=== PATIENT | female | born 1935 | race Caucasian/White ===

== ENCOUNTER → 2020-08-04 09:43 | Outpatient (BNVA) | payer MEDICARE, SELFPAY | PROVIDERS: PCP Internal Medicine; Visit Provider Internal Medicine | DX: I48.20 Chronic atrial fibrillation, unspecified (principal); Z51.81 Encounter for therapeutic drug level monitoring; Z79.01 Long term (current) use of anticoagulants | CPT/HCPCS: 85610; 99211 ==

== ENCOUNTER 2020-08-17 10:42 | Outpatient (REF) | payer MEDICARE, SELFPAY ==
[2020-08-17 13:57] LABS: Hematocrit 37.5 % (37-47); Hemoglobin 11.9 g/dl (12.0-16.0); Mean Corpuscular HGB Conc 31.7 g/dl (31.0-35.0); Mean Corpuscular Hemoglobin 30.1 pg (27.0-33.0); Mean Corpuscular Volume 94.7 fL (80-98); Mean Platelet Volume 12.4 fL (9.4-12.3); Platelet Count 177 X10*3/uL (160-400); Red Blood Count 3.96 X10*6/uL (4.20-5.50); Red Cell Distribution Width 13.9 % (11.0-16.0); White Blood Count 6.1 X10*3/uL (4.8-10.8)
[2020-08-17 14:24] LABS: Cholesterol 103 mg/dL; HDL Cholesterol 36 mg/dL; LDL Cholesterol Calculated 48 mg/dl; Triglycerides 98 mg/dL
[2020-08-17 14:29] LABS: Creatinine Urine 45.13 mg/dL; Microalbum/Creatinine Ratio Ur 39.8 ug/mg cr
[2020-08-17 14:43] LABS: Alanine Aminotransferase 85 U/L (0-31); Alkaline Phosphatase 64 U/L (39-117); Anion Gap 10 (12-20); Aspartate Amino Transferase 102 U/L (5-31); Bilirubin Total 0.2 mg/dL (0.0-1.0); Blood Urea Nitrogen 20 mg/dL (9-16); Calcium 9.2 mg/dL (8.4-10.2); Carbon Dioxide 27 mmol/L (22-29); Chloride 105 mmol/L (96-108); Estimated Glomerular Filt Rate 46; Glucose Random 81 mg/dL (60-115); Potassium 4.9 mmol/l (3.3-5.1); Sodium 137 mmol/L (135-145); Total Protein 8.3 g/dL (6.5-8.0)
[2020-08-17 14:49] LABS: Vitamin B12 529 pg/mL (200-900)
[2020-08-18 18:17] LABS: LDL Cholesterol Direct 50 mg/dL (<100)
== END 2020-08-17 10:43 | disposition home or self-care (01) ==
LOC: HO.LAB 10:42
PROVIDERS: PCP Internal Medicine; Referring Provider Internal Medicine; Visit Provider Internal Medicine Endocrinology, Diabetes & Metabolism
DX: E10.42 Type 1 diabetes mellitus with diabetic polyneuropathy (principal); E10.21 Type 1 diabetes mellitus with diabetic nephropathy; E78.5 Hyperlipidemia, unspecified; I10 Essential (primary) hypertension; Z68.27 Body mass index [BMI] 27.0-27.9, adult; Z79.4 Long term (current) use of insulin; Z71.3 Dietary counseling and surveillance
CPT/HCPCS: 36415; 80053; 80061; 82043; 82607; 82947; 83721; 85027; 99214

== ENCOUNTER 2020-08-26 09:17 | Outpatient (REF) | payer MEDICARE, SELFPAY ==
[2020-08-26 10:31] LABS: MANUAL DIFF FLAG NO
[2020-08-26 10:35] LABS: Basophils Percent Auto 0.8 % (0-2); Eosinophils Absolute Auto 0.1 X10*3/uL (0.0-0.4); Eosinophils Percent Auto 2.3 % (0-4); Hematocrit 36.2 % (37-47); Hemoglobin 11.5 g/dl (12.0-16.0); Imm Gran Abs Auto 0.01 X10*3/uL (0.00-0.03); Imm Gran Pct Auto 0.2 % (0.0-0.4); Lymphocytes Absolute Auto 1.9 X10*3/uL (1.2-4.9); Lymphocytes Percent Auto 37.4 % (20-40); Mean Corpuscular HGB Conc 31.8 g/dl (31.0-35.0); Mean Corpuscular Volume 94.5 fL (80-98); Monocytes Absolute Auto 0.5 X10*3/uL (0.1-1.2); Monocytes Percent Auto 9.5 % (2-11); Neutrophils Absolute Auto 2.6 X10*3/uL (2.0-8.3); Neutrophils Percent Auto 49.8 % (45-73); Platelet Count 188 X10*3/uL (160-400); Red Blood Count 3.83 X10*6/uL (4.20-5.50); Red Cell Distribution Width 14.6 % (11.0-16.0); White Blood Count 5.2 X10*3/uL (4.8-10.8)
[2020-08-26 10:41] LABS: INTERNATIONAL NORM RATIO 1.4 (0.9-1.1); Prothrombin Time 16.1 SEC (10.8-13.0)
[2020-08-26 11:02] LABS: Alanine Aminotransferase 54 U/L (0-31); Alkaline Phosphatase 60 U/L (39-117); Aspartate Amino Transferase 68 U/L (5-31); Bilirubin Direct 0.2 mg/dL (0.0-0.5); Bilirubin Total 0.7 mg/dL (0.0-1.0); Total Protein 8.1 g/dL (6.5-8.0)
[2020-08-26 11:04] LABS: Blood Urea Nitrogen 17 mg/dL (9-16); Estimated Glomerular Filt Rate 52
== END 2020-08-26 09:18 | disposition home or self-care (01) ==
LOC: HO.LAB 09:17
PROVIDERS: PCP Internal Medicine; Referring Provider Physician Assistant Surgical; Visit Provider Internal Medicine Endocrinology, Diabetes & Metabolism
DX: I10 Essential (primary) hypertension (principal); R74.8 Abnormal levels of other serum enzymes; I35.0 Nonrheumatic aortic (valve) stenosis
CPT/HCPCS: 36415; 80076; 82565; 84520; 85025; 85610

== ENCOUNTER → 2020-08-28 10:21 | Outpatient (BNVA) | payer MEDICARE, SELFPAY | PROVIDERS: PCP Internal Medicine; Referring Provider Internal Medicine; Visit Provider Internal Medicine | DX: I48.20 Chronic atrial fibrillation, unspecified (principal); Z51.81 Encounter for therapeutic drug level monitoring; Z79.01 Long term (current) use of anticoagulants | CPT/HCPCS: 85610; 99211 ==

== ENCOUNTER → 2020-09-04 10:16 | Outpatient (BNVA) | payer MEDICARE, SELFPAY | PROVIDERS: PCP Internal Medicine; Visit Provider Internal Medicine | DX: I48.20 Chronic atrial fibrillation, unspecified (principal); Z79.01 Long term (current) use of anticoagulants; Z51.81 Encounter for therapeutic drug level monitoring | CPT/HCPCS: 85610; 99211 ==

== ENCOUNTER → 2020-09-07 10:47 | Outpatient (BNVA) | payer MEDICARE, SELFPAY | PROVIDERS: PCP Internal Medicine; Visit Provider Internal Medicine | DX: I48.20 Chronic atrial fibrillation, unspecified (principal); Z79.01 Long term (current) use of anticoagulants; Z51.81 Encounter for therapeutic drug level monitoring | CPT/HCPCS: 85610; 99211 ==

== ENCOUNTER → 2020-09-14 10:14 | Outpatient (BNVA) | payer MEDICARE, SELFPAY | PROVIDERS: PCP Internal Medicine; Visit Provider Internal Medicine | DX: I48.20 Chronic atrial fibrillation, unspecified (principal); Z51.81 Encounter for therapeutic drug level monitoring; Z79.01 Long term (current) use of anticoagulants | CPT/HCPCS: 85610; 99211 ==

== ENCOUNTER → 2020-09-17 10:16 | Outpatient (BNVA) | payer MEDICARE, SELFPAY | PROVIDERS: PCP Internal Medicine; Visit Provider Internal Medicine | DX: I48.20 Chronic atrial fibrillation, unspecified (principal); Z51.81 Encounter for therapeutic drug level monitoring; Z79.01 Long term (current) use of anticoagulants | CPT/HCPCS: 85610; 99211 ==

== ENCOUNTER → 2020-09-22 09:14 | Outpatient (BNVA) | payer MEDICARE, SELFPAY | PROVIDERS: PCP Internal Medicine; Visit Provider Nurse Practitioner | DX: R74.8 Abnormal levels of other serum enzymes (principal); I48.91 Unspecified atrial fibrillation; E11.42 Type 2 diabetes mellitus with diabetic polyneuropathy; Z79.01 Long term (current) use of anticoagulants | CPT/HCPCS: 99202 ==

== ENCOUNTER 2020-09-23 10:05 | Outpatient (REF) | payer MEDICARE, SELFPAY ==
[2020-09-23 11:26] LABS: B Type Natriuretic Peptide 81 pg/mL (<100)
[2020-09-23 11:48] LABS: Ferritin 10 ng/mL (10-250); HBsAGNum1 0.15 S/CO (0.00-0.99); Hepatitis A Antibody IgM 0.15 Index (0-0.79); Hepatitis B Surface Antigen Negative (Negative); ~HepC Num1 0.14 S/CO (0.00-0.79); ~Hepatitis A Antibody IgM Nonreactive (Nonreactive); ~Hepatitis C Antibody Nonreactive (Nonreactive)
[2020-09-23 11:50] LABS: HBS Num1 1.14 mIU/mL (0-7.99); HBc Num1 0.11 S/CO (0.00-0.79); Hepatitis B Core Antibody Nonreactive (Nonreactive); ~Hepatitis B Surface Antibody NONREACTIVE (Nonreactive)
[2020-09-25 10:57] LABS: Alpha Fetoprotein 3.1 ng/mL
[2020-09-27 10:42] LABS: Anti Nuclear Antibody Pattern Nuclear, Homogeneous; Anti Nuclear Antibody Screen POSITIVE (NEGATIVE)
[2020-09-28 14:47] LABS: Mitochondrial Antibodies NEGATIVE (NEGATIVE)
[2020-09-30 00:32] LABS: Smooth Muscle Antibody <20 U (<20)
== END 2020-09-23 10:06 | disposition home or self-care (01) ==
LOC: HO.LAB 10:05
PROVIDERS: PCP Internal Medicine; Visit Provider Nurse Practitioner
DX: R74.8 Abnormal levels of other serum enzymes (principal); I48.91 Unspecified atrial fibrillation
CPT/HCPCS: 36415; 82105; 82728; 83880; 85610; 86038; 86039; 86255; 86256; 86704; 86706; 86709; 86803; 87340; 99211

== ENCOUNTER → 2020-09-30 10:32 | Outpatient (BNVA) | payer MEDICARE, SELFPAY | PROVIDERS: PCP Internal Medicine; Visit Provider Internal Medicine | DX: I48.20 Chronic atrial fibrillation, unspecified (principal); Z51.81 Encounter for therapeutic drug level monitoring; Z79.01 Long term (current) use of anticoagulants | CPT/HCPCS: 85610; 99211 ==

== ENCOUNTER → 2020-10-06 10:57 | Outpatient (BNVA) | payer MEDICARE, SELFPAY | PROVIDERS: PCP Internal Medicine; Visit Provider Internal Medicine | DX: I48.20 Chronic atrial fibrillation, unspecified (principal); Z51.81 Encounter for therapeutic drug level monitoring; Z79.01 Long term (current) use of anticoagulants | CPT/HCPCS: 85610; 99211 ==

== ENCOUNTER → 2020-10-13 11:17 | Outpatient (BNVA) | payer MEDICARE, SELFPAY | PROVIDERS: PCP Internal Medicine; Visit Provider Internal Medicine | DX: I48.20 Chronic atrial fibrillation, unspecified (principal); Z51.81 Encounter for therapeutic drug level monitoring; Z79.01 Long term (current) use of anticoagulants | CPT/HCPCS: 85610; 99211 ==

== ENCOUNTER 2020-10-19 10:22 | Outpatient (REF) | payer MEDICARE, SELFPAY ==
--- NOTE | 2020-10-19 10:28 | US_ITS ---
EXAMINATION: US ABDOMEN LIMITED CLINICAL INFORMATION: Elevated liver enzymes. COMPARISON: None TECHNIQUE: Real-time imaging of the right upper quadrant abdominal viscera. Technically difficult study secondary to bowel gas, body habitus. FINDINGS: PANCREAS: Head and body appear unremarkable without evidence of focal mass or peripancreatic inflammatory change. The tail is obscured by overlying bowel gas. LIVER: The liver is normal in size. The liver contour is normal. There is mild coarseness to the echotexture which may be due to some degree of hepatocellular disease. No focal hepatic lesion. There is no intrahepatic biliary duct dilatation seen. GALLBLADDER: Surgically absent. COMMON BILE DUCT: Normal in caliber measuring 0.8 cm in diameter. RIGHT KIDNEY: No hydronephrosis or focal parenchymal lesions. The kidney measures 8.0 cm in maximum dimension. There is a 5 mm echogenic focus seen in the mid pole region which may represent a nonobstructing calculus or calcified vessel. FREE FLUID: None. US/US abdomen limited IMPRESSION: Mildly coarsened echotexture of the liver consistent with some degree of hepatocellular disease.
== END 2020-10-19 10:23 | disposition home or self-care (01) ==
LOC: HO.US 10:22
PROVIDERS: Visit Provider Nurse Practitioner
DX: R74.8 Abnormal levels of other serum enzymes (principal)
CPT/HCPCS: 76705

== ENCOUNTER → 2020-10-27 10:56 | Outpatient (BNVA) | payer MEDICARE, SELFPAY | PROVIDERS: PCP Internal Medicine; Visit Provider Internal Medicine | DX: I48.20 Chronic atrial fibrillation, unspecified (principal); Z51.81 Encounter for therapeutic drug level monitoring; Z79.01 Long term (current) use of anticoagulants | CPT/HCPCS: 85610; 99211 ==

== ENCOUNTER → 2020-11-10 10:28 | Outpatient (BNVA) | payer MEDICARE, SELFPAY | PROVIDERS: PCP Internal Medicine; Visit Provider Internal Medicine | DX: I48.20 Chronic atrial fibrillation, unspecified (principal); Z79.01 Long term (current) use of anticoagulants; Z51.81 Encounter for therapeutic drug level monitoring | CPT/HCPCS: 85610; 99211 ==

== ENCOUNTER → 2020-11-12 10:35 | Outpatient (BNVA) | payer MEDICARE, SELFPAY | PROVIDERS: PCP Family Medicine; Visit Provider Internal Medicine Endocrinology, Diabetes & Metabolism | DX: Z13.89 Encounter for screening for other disorder (principal) | CPT/HCPCS: Q3014 ==

== ENCOUNTER 2020-11-13 10:31 | Outpatient (REF) | payer MEDICARE, SELFPAY ==
[2020-11-13 12:25] LABS: Alanine Aminotransferase 79 U/L (0-31); Albumin Level 3.9 g/dL (3.5-5.0); Alkaline Phosphatase 66 U/L (39-117); Anion Gap 14 (12-20); Aspartate Amino Transferase 82 U/L (5-31); Bilirubin Total 0.4 mg/dL (0.0-1.0); Blood Urea Nitrogen 25 mg/dL (9-16); Carbon Dioxide 23 mmol/L (22-29); Chloride 106 mmol/L (96-108); Cholesterol 196 mg/dL; Estimated Glomerular Filt Rate 46; Glucose Fasting 142 mg/dL (60-99); HDL Cholesterol 46 mg/dL; LDL Cholesterol Calculated 117 mg/dl; Potassium 5.3 mmol/l (3.3-5.1); Sodium 138 mmol/L (135-145); Triglycerides 168 mg/dL
[2020-11-13 12:36] LABS: Vitamin B12 328 pg/mL (200-900)
[2020-11-13 12:37] LABS: Estimated Average Glucose 146 mg/dL; Hemoglobin A1c % 6.7 %
[2020-11-13 13:35] LABS: Creatinine Urine 40.35 mg/dL; Microalbum/Creatinine Ratio Ur 14.8 ug/mg cr
[2020-11-14 08:32] LABS: LDL Cholesterol Direct 135 mg/dL (<100)
== END 2020-11-13 10:32 | disposition home or self-care (01) ==
LOC: HO.LAB 10:31
PROVIDERS: PCP Internal Medicine; Visit Provider Internal Medicine Endocrinology, Diabetes & Metabolism
DX: E13.9 Other specified diabetes mellitus without complications (principal)
CPT/HCPCS: 36415; 80053; 80061; 82043; 82607; 83036; 83721

== ENCOUNTER 2020-11-14 08:53 | Outpatient (REF) | payer MEDICARE, SELFPAY ==
[2020-11-14 09:36] LABS: Anion Gap 12 (12-20); Blood Urea Nitrogen 27 mg/dL (9-16); Calcium 9.2 mg/dL (8.4-10.2); Carbon Dioxide 25 mmol/L (22-29); Chloride 106 mmol/L (96-108); Estimated Glomerular Filt Rate 42; Glucose Random 186 mg/dL (60-115); Sodium 138 mmol/L (135-145)
== END 2020-11-14 08:54 | disposition home or self-care (01) ==
LOC: HO.LAB 08:53
PROVIDERS: PCP Internal Medicine; Visit Provider Internal Medicine Endocrinology, Diabetes & Metabolism
DX: E13.9 Other specified diabetes mellitus without complications (principal)
CPT/HCPCS: 36415; 80048

== ENCOUNTER → 2020-11-23 10:45 | Outpatient (BNVA) | payer MEDICARE, SELFPAY | PROVIDERS: PCP Family Medicine; Referring Provider Family Medicine; Visit Provider Urology | DX: Z13.89 Encounter for screening for other disorder (principal) | CPT/HCPCS: Q3014 ==

== ENCOUNTER → 2020-11-24 10:19 | Outpatient (BNVA) | payer MEDICARE, SELFPAY | PROVIDERS: PCP Family Medicine; Visit Provider Internal Medicine | DX: I48.20 Chronic atrial fibrillation, unspecified (principal); Z51.81 Encounter for therapeutic drug level monitoring; Z79.01 Long term (current) use of anticoagulants | CPT/HCPCS: 85610; 99211 ==

== ENCOUNTER 2020-12-03 11:09 | Outpatient (REF) | payer MEDICARE, SELFPAY ==
--- NOTE | ~2020-12-03 | MM_ITS ---
EXAMINATION: MM SCREENING DIGITAL BREAST TOMOSYNTHESIS, BILATERAL CLINICAL INFORMATION: Screening. Asymptomatic. The lifetime risk of breast cancer based on the Tyrer-Cuzick Model is 0.3%. COMPARISON: Mammography: May 10, 2019 and studies dating back to February 10, 2015 TECHNIQUE: Digital breast tomosynthesis is performed in both the craniocaudal and mediolateral oblique views along with computer-aided detection (CAD). Synthesized 2D images are generated from the tomosynthesis. FINDINGS: There are scattered areas of fibroglandular density (ACR BI-RADS breast composition Category b). There are no significant masses, abnormal calcifications, or other abnormalities. There is multiplicity and bilaterality of stable innumerable secretory vascular calcifications. MM/MM tomosynthesis screening BI IMPRESSION: There are no significant changes from prior study. ASSESSMENT: BI-RADS 1: Negative RECOMMENDATION: Routine annual mammography screening. This patient's information was entered into a reminder system with a target due date for their next mammogram.
== END 2020-12-03 11:10 | disposition home or self-care (01) ==
LOC: HO.MAMMO 11:09
PROVIDERS: PCP Internal Medicine; Visit Provider Internal Medicine
DX: Z12.31 Encounter for screening mammogram for malignant neoplasm of breast (principal)
CPT/HCPCS: 77063; 77067

== ENCOUNTER → 2020-12-09 10:19 | Outpatient (BNVA) | payer MEDICARE, SELFPAY | PROVIDERS: PCP Internal Medicine; Visit Provider Internal Medicine | DX: I48.20 Chronic atrial fibrillation, unspecified (principal); Z51.81 Encounter for therapeutic drug level monitoring; Z79.01 Long term (current) use of anticoagulants | CPT/HCPCS: 85610; 99211 ==

== ENCOUNTER → 2020-12-21 10:45 | Outpatient (BNVA) | payer MEDICARE, SELFPAY | PROVIDERS: PCP Internal Medicine; Visit Provider Internal Medicine | DX: I48.20 Chronic atrial fibrillation, unspecified (principal); Z51.81 Encounter for therapeutic drug level monitoring; Z79.01 Long term (current) use of anticoagulants | CPT/HCPCS: 85610; 99211 ==

== ENCOUNTER 2020-12-23 09:37 | Outpatient (REF) | payer MEDICARE, SELFPAY ==
--- NOTE | ~2020-12-23 | MM_ITS ---
EXAMINATION: BONE DENSITOMETRY CLINICAL INDICATION: Screening for osteoporosis. COMPARISON: Previous BD dated 01/15/2019 and baseline BD dated 11/02/2007. TECHNIQUE: Using a Save22 DXA System (software version: 13.1) manufactured by [employer], dual-energy x-ray absorptiometry was performed of the lumbar spine and left hip. The images are of good technical quality. Summary results are attached. FINDINGS: AP SPINE L1-L4: Current: BMD 1.034 g/cm2, Z-score 0.7, T-score -1.2, osteopenia, 9.8% increase from previous, 0.5% decrease from baseline (<5% change is not significant). Prior: BMD 0.942 g/cm2. Baseline: BMD 1.039 g/cm2. LEFT FEMUR, NECK: Current: BMD 0.753 g/cm2, Z-score 0.3, T-score -2.1, osteopenia. Prior: BMD 0.748 g/cm2. Baseline: BMD 0.749 g/cm2. LEFT FEMUR, TOTAL: Current: BMD 0.855 g/cm2, Z-score 1.1, T-score -1.2, osteopenia, 2.5% decrease from previous, 2.8% decrease from baseline (<5% change is not significant). Prior: BMD 0.877 g/cm2. Baseline: BMD 0.880 g/cm2. IDENTIFIED RISK FACTORS: Rheumatoid arthritis, menopause. HISTORY OF FRACTURE: None listed. MEDICATIONS: Calcium supplements or multivitamin, vitamin D. MM/XR DEXA axial skeleton IMPRESSION: 1. DIAGNOSIS: Osteopenia based on the lowest T-score value of -2.1 in the femoral neck applying World Health Organization criteria. 2. 10-YEAR FRACTURE RISK PREDICTION, FRAX: Major osteoporotic fracture (clinical spine, forearm, hip or shoulder) 13.4%. Hip fracture 4.5%. 3. Treatment Recommendations: NOF guidelines recommend consideration for treatment in postmenopausal women and men age 50 and older presenting with the following: -A hip or vertebral (clinical or morphometric) fracture. -T-score less than or equal to -2.5 at the femoral neck or spine after appropriate evaluation to exclude secondary causes. -Low bone mass at the hip or spine and a 10-year fracture probability by FRAX of greater than or equal to 3% for hip fracture or greater than or equal to 20% for major osteoporotic fracture based on the [place] adapted WHO algorithm. 4. Other Recommendations: All treatment decisions require clinical judgment and consideration of individual patient factors, including patient preferences, comorbidities, previous drug use, risk factors not captured in the FRAX model (e.g. frailty, falls, vitamin D deficiency, increased bone turnover, interval significant decline in bone density) and possible under or overestimation of fracture risk by FRAX. Additional medical evaluation for secondary cause of low bone mineral density may be appropriate. FUTURE SCAN RECOMMENDATION: People with diagnosed cases of osteoporosis or at high risk for fracture should have regular bone mineral density tests. For patients eligible for Medicare, routine testing is allowed once every 2 years. The testing frequency can be increased to one year for patients who have rapidly progressing disease, those who are receiving or discontinuing medical therapy to restore bone mass, or have additional risk factors.
== END 2020-12-23 09:38 | disposition home or self-care (01) ==
LOC: HO.MAMMO 09:37
PROVIDERS: PCP Internal Medicine; Visit Provider Internal Medicine
DX: Z13.820 Encounter for screening for osteoporosis (principal); Z78.0 Asymptomatic menopausal state; M06.9 Rheumatoid arthritis, unspecified
CPT/HCPCS: 77080

== ENCOUNTER → 2020-12-28 10:49 | Outpatient (BNVA) | payer MEDICARE, SELFPAY | PROVIDERS: PCP Internal Medicine; Visit Provider Internal Medicine | DX: I48.20 Chronic atrial fibrillation, unspecified (principal); Z51.81 Encounter for therapeutic drug level monitoring; Z79.01 Long term (current) use of anticoagulants | CPT/HCPCS: 85610; 99211 ==

== ENCOUNTER → 2021-01-11 11:02 | Outpatient (BNVA) | payer MEDICARE, SELFPAY | PROVIDERS: PCP Internal Medicine; Visit Provider Internal Medicine | DX: I48.20 Chronic atrial fibrillation, unspecified (principal); Z51.81 Encounter for therapeutic drug level monitoring; Z79.01 Long term (current) use of anticoagulants | CPT/HCPCS: 85610; 99211 ==

== ENCOUNTER → 2021-01-25 10:15 | Outpatient (BNVA) | payer MEDICARE, SELFPAY | PROVIDERS: PCP Internal Medicine; Visit Provider Internal Medicine | DX: I48.20 Chronic atrial fibrillation, unspecified (principal); Z51.81 Encounter for therapeutic drug level monitoring; Z79.01 Long term (current) use of anticoagulants | CPT/HCPCS: 85610; 99211 ==

== ENCOUNTER → 2021-02-11 10:48 | Outpatient (BNVA) | payer MEDICARE, SELFPAY | PROVIDERS: PCP Internal Medicine; Visit Provider Internal Medicine Endocrinology, Diabetes & Metabolism | DX: E10.42 Type 1 diabetes mellitus with diabetic polyneuropathy (principal); E10.21 Type 1 diabetes mellitus with diabetic nephropathy; I10 Essential (primary) hypertension; E78.5 Hyperlipidemia, unspecified | CPT/HCPCS: 82947; 99212 ==

== ENCOUNTER 2021-02-11 11:29 | Outpatient (REF) | payer MEDICARE, SELFPAY ==
[2021-02-11 14:40] LABS: Alanine Aminotransferase 37 U/L (0-31); Albumin Level 3.9 g/dL (3.5-5.0); Alkaline Phosphatase 60 U/L (39-117); Anion Gap 11 (12-20); Aspartate Amino Transferase 41 U/L (5-31); Bilirubin Total 0.4 mg/dL (0.0-1.0); Blood Urea Nitrogen 25 mg/dL (9-16); Calcium 9.1 mg/dL (8.4-10.2); Carbon Dioxide 26 mmol/L (22-29); Chloride 106 mmol/L (96-108); Cholesterol 203 mg/dL; Estimated Glomerular Filt Rate 47; Glucose Random 112 mg/dL (60-115); HDL Cholesterol 50 mg/dL; LDL Cholesterol Calculated 128 mg/dl; Sodium 138 mmol/L (135-145); Total Protein 8.2 g/dL (6.5-8.0); Triglycerides 125 mg/dL
[2021-02-11 14:44] LABS: Creatinine Urine 119.31 mg/dL; Microalbum/Creatinine Ratio Ur 21.7 ug/mg cr
[2021-02-11 15:03] LABS: Vitamin B12 321 pg/mL (200-900)
[2021-02-11 15:04] LABS: Free T4 (Free Thyroxine) 0.96 ng/dL (0.71-1.85); Thyroid Stimulating Hormone 2.84 uIU/mL (0.32-4.0)
[2021-02-12 06:47] LABS: LDL Cholesterol Direct 139 mg/dL (<100)
== END 2021-02-11 11:30 | disposition home or self-care (01) ==
LOC: HO.10HDL 11:29
PROVIDERS: Visit Provider Internal Medicine Endocrinology, Diabetes & Metabolism
DX: E13.9 Other specified diabetes mellitus without complications (principal); M85.80 Other specified disorders of bone density and structure, unspecified site
CPT/HCPCS: 36415; 80053; 80061; 82043; 82306; 82607; 83721; 84439; 84443

== ENCOUNTER → 2021-02-19 10:21 | Outpatient (BNVA) | payer MEDICARE, SELFPAY | PROVIDERS: PCP Internal Medicine; Visit Provider Internal Medicine | DX: I48.20 Chronic atrial fibrillation, unspecified (principal); Z51.81 Encounter for therapeutic drug level monitoring; Z79.01 Long term (current) use of anticoagulants | CPT/HCPCS: 85610; 99211 ==

== ENCOUNTER → 2021-03-12 10:25 | Outpatient (BNVA) | payer MEDICARE, SELFPAY | PROVIDERS: PCP Internal Medicine; Visit Provider Internal Medicine | DX: I48.20 Chronic atrial fibrillation, unspecified (principal); Z51.81 Encounter for therapeutic drug level monitoring; Z79.01 Long term (current) use of anticoagulants | CPT/HCPCS: 85610; 99211 ==

== ENCOUNTER → 2021-03-22 10:19 | Outpatient (BNVA) | payer MEDICARE, SELFPAY | PROVIDERS: PCP Internal Medicine; Visit Provider Internal Medicine | DX: I48.20 Chronic atrial fibrillation, unspecified (principal); Z51.81 Encounter for therapeutic drug level monitoring; Z79.01 Long term (current) use of anticoagulants | CPT/HCPCS: 85610; 99211 ==

== ENCOUNTER → 2021-04-12 10:24 | Outpatient (BNVA) | payer MEDICARE, SELFPAY | PROVIDERS: PCP Internal Medicine; Visit Provider Internal Medicine | DX: I48.20 Chronic atrial fibrillation, unspecified (principal); Z51.81 Encounter for therapeutic drug level monitoring; Z79.01 Long term (current) use of anticoagulants | CPT/HCPCS: 85610; 99211 ==

== ENCOUNTER → 2021-04-26 10:24 | Outpatient (BNVA) | payer MEDICARE, SELFPAY | PROVIDERS: PCP Internal Medicine; Visit Provider Internal Medicine | DX: I48.20 Chronic atrial fibrillation, unspecified (principal); Z51.81 Encounter for therapeutic drug level monitoring; Z79.01 Long term (current) use of anticoagulants | CPT/HCPCS: 85610; 99211 ==

== ENCOUNTER → 2021-05-17 10:22 | Outpatient (BNVA) | payer MEDICARE, SELFPAY | PROVIDERS: PCP Internal Medicine; Visit Provider Internal Medicine | DX: I48.20 Chronic atrial fibrillation, unspecified (principal); Z51.81 Encounter for therapeutic drug level monitoring; Z79.01 Long term (current) use of anticoagulants | CPT/HCPCS: 85610; 99211 ==

== ENCOUNTER → 2021-05-20 09:56 | Outpatient (BNVA) | payer MEDICARE, SELFPAY | PROVIDERS: Visit Provider Internal Medicine Endocrinology, Diabetes & Metabolism | DX: E13.9 Other specified diabetes mellitus without complications (principal); E10.42 Type 1 diabetes mellitus with diabetic polyneuropathy; E10.21 Type 1 diabetes mellitus with diabetic nephropathy; I10 Essential (primary) hypertension; E78.5 Hyperlipidemia, unspecified | CPT/HCPCS: 82947; 99212 ==

== ENCOUNTER → 2021-06-03 10:47 | Outpatient (BNVA) | payer MEDICARE, SELFPAY | DX: N39.0 Urinary tract infection, site not specified (principal) | CPT/HCPCS: 99212 ==

== ENCOUNTER → 2021-06-07 10:23 | Outpatient (BNVA) | payer MEDICARE, SELFPAY | PROVIDERS: PCP Internal Medicine; Visit Provider Internal Medicine | DX: I48.20 Chronic atrial fibrillation, unspecified (principal); Z51.81 Encounter for therapeutic drug level monitoring; Z79.01 Long term (current) use of anticoagulants | CPT/HCPCS: 85610; 99211 ==

== ENCOUNTER → 2021-06-28 10:16 | Outpatient (BNVA) | payer MEDICARE, SELFPAY | PROVIDERS: PCP Internal Medicine; Visit Provider Internal Medicine | DX: I48.20 Chronic atrial fibrillation, unspecified (principal); Z51.81 Encounter for therapeutic drug level monitoring; Z79.01 Long term (current) use of anticoagulants | CPT/HCPCS: 85610; 99211 ==

== ENCOUNTER → 2021-07-26 10:18 | Outpatient (BNVA) | payer MEDICARE, SELFPAY | PROVIDERS: PCP Internal Medicine; Visit Provider Internal Medicine | DX: I48.20 Chronic atrial fibrillation, unspecified (principal); Z51.81 Encounter for therapeutic drug level monitoring; Z79.01 Long term (current) use of anticoagulants | CPT/HCPCS: 85610; 99211 ==

== ENCOUNTER → 2021-08-23 10:43 | Outpatient (BNVA) | payer MEDICARE, SELFPAY | PROVIDERS: PCP Internal Medicine; Visit Provider Internal Medicine | DX: I48.20 Chronic atrial fibrillation, unspecified (principal); Z51.81 Encounter for therapeutic drug level monitoring; Z79.01 Long term (current) use of anticoagulants | CPT/HCPCS: 85610; 99211 ==

== ENCOUNTER → 2021-09-20 10:20 | Outpatient (BNVA) | payer MEDICARE, SELFPAY | PROVIDERS: PCP Internal Medicine; Visit Provider Internal Medicine | DX: I48.20 Chronic atrial fibrillation, unspecified (principal); Z51.81 Encounter for therapeutic drug level monitoring; Z79.01 Long term (current) use of anticoagulants | CPT/HCPCS: 85610; 99211 ==

== ENCOUNTER → 2021-10-18 10:25 | Outpatient (BNVA) | payer MEDICARE, SELFPAY | PROVIDERS: PCP Internal Medicine; Visit Provider Internal Medicine | DX: I48.20 Chronic atrial fibrillation, unspecified (principal); Z51.81 Encounter for therapeutic drug level monitoring; Z79.01 Long term (current) use of anticoagulants | CPT/HCPCS: 85610; 99211 ==

== ENCOUNTER 2021-10-27 02:22 | Emergency (ER) | payer MEDICARE, SELFPAY ==
--- NOTE | ~2021-10-27 | XR_ITS ---
EXAMINATION: XR CHEST CLINICAL INFORMATION: Tube repositioning COMPARISON: 10/27/2021 TECHNIQUE: Frontal view of the chest was obtained. FINDINGS: Endotracheal tube tip lies 3.8 cm above the kianna. Enteric tube courses into the stomach. Lung volumes are symmetric. Redemonstrated perihilar predominant bilateral airspace opacities, right greater than left. There is also increasing opacity at the left lung base. Small to moderate left pneumothorax is noted. Probable small left pleural effusion. The cardiomediastinal contour is unremarkable. No displaced fracture is identified. XR/XR chest 1V IMPRESSION: 1. Endotracheal tube tip 3.8 cm above the kianna. 2. Small to moderate left pneumothorax and small pleural effusion. 3. Redemonstrated perihilar predominant bilateral airspace opacities, right greater than left, suggesting edema. This critical result was discussed with Dr. Zhang on 10/27/2021 5:35 AM, and it was ascertained that the content and urgency of the report was understood at the time of direct communication.
--- NOTE | ~2021-10-27 | XR_ITS ---
EXAMINATION: XR CHEST CLINICAL INFORMATION: Chest tube placement COMPARISON: 11/03/2015 TECHNIQUE: Frontal view of the chest was obtained. FINDINGS: Endotracheal tube tip lies approximately 1.5 cm beyond the kianna in the right mainstem bronchus. Enteric tube courses into the stomach. Lung volumes are symmetric. There are bilateral perihilar predominant airspace opacities most suggestive of edema. No appreciable pneumothorax or significant pleural effusion. The cardiomediastinal contour is unremarkable. No acute osseous findings are seen. XR/XR chest 1V IMPRESSION: Endotracheal tube tip approximately 1.5 cm beyond the kianna in the right mainstem bronchus. Bilateral perihilar predominant airspace opacities suggestive of moderate edema. This critical result was discussed with Dr. Zhang on 10/27/2021 3:23 AM, and it was ascertained that the content and urgency of the report was understood at the time of direct communication.
--- NOTE | 2021-10-27 02:36 | ECG_ITS ---
Test Reason : code Blood Pressure : / mmHG Vent. Rate : 065 BPM Atrial Rate : 000 BPM P-R Int : 000 ms QRS Dur : 134 ms QT Int : 446 ms P-R-T Axes : 000 -66 253 degrees QTc Int : 463 ms Sinus rhtyhm with AV Wenckebach alternating with 2:1 block Right bundle branch block Left anterior fascicular block Bifascicular block ST- T wave abnormality, consider inferior ischemia and lateral ischemia Abnormal ECG When compared with ECG of 21-JAN-2016 08:45, Significant changes compared to old ECG Referred By: Chinyere Zhang Electronically Signed By:Marck Sesay
[2021-10-27 02:42] VITALS: BP 000/00; PULSE 70; RESP 40; TEMP -17.7; TEMP 0; BMI 23.8
--- NOTE | 2021-10-27 02:49 | ED.CPR ---
HPI - CPR General Chief Complaint: Cardiac Arrest/CPR Stated Complaint: CARDIAC ARREST Time Seen by Provider: 10/27/21 02:48 Source: family (Daughter Kinza) and EMS Mode of arrival: EMS History of Present Illness HPI narrative: 86-year-old female arrives with CPR in progress and history provided by EMS and family member is significant for increasing shortness of breath. Patient had witnessed cardiac arrest and EMS reports that patient received 3 rounds of epi as well as to shocks for V-tach but otherwise noted that PEA was on the monitor. IO was in place in left humerus and patient had Owen tube in place. Related Data Home Medications Medication Instructions Recorded Confirmed calcium citrate 315 mg-vitamin D3 1 tab PO 08/17/20 10/18/21 5 mcg (200 unit) tablet diclofenac sodium 75 mg 75 mg PO BID 08/17/20 10/18/21 tablet,delayed release levothyroxine 50 mcg tablet 50 mcg PO DAILY 08/17/20 10/18/21 lisinopril 20 mg tablet 20 mg PO DAILY 08/17/20 10/18/21 metoprolol succinate 50 mg 50 mg PO DAILY 08/17/20 10/18/21 tablet,extended release 24 hr omeprazole 20 mg capsule,delayed 0 mg PO 08/17/20 10/18/21 release blood pressure test kit-large #1 ea 11/12/20 07/26/21 blood-glucose meter #1 ea 11/12/20 07/26/21 gabapentin 300 mg capsule 300 mg PO BID 11/12/20 10/18/21 Previous Rx's Medication Instructions Recorded warfarin 5 mg tablet See Rx Instructions .ROUTE 08/04/20 .COMPLEX #90 tab blood sugar diagnostic #350 ea 02/11/21 lancets 33 gauge #350 ea 02/11/21 ezetimibe 10 mg tablet 10 mg PO QAM #90 tab 04/12/21 nitrofurantoin macrocrystal 100 mg 100 mg PO DAILY 90 Days #90 cap 05/11/21 capsule insulin aspart U-100 100 unit/mL See Rx Instructions SUBCUT 05/20/21 (3 mL) subcutaneous pen .COMPLEX 90 Days #30 ml insulin glargine U-300 conc 300 10 unit (0.0333 mL) SUBCUT BEDTIME 05/20/21 unit/mL (1.5 mL) subcutaneous pen 90 Days #4.5 ml (Toujeo SoloStar U-300 Insulin) metformin 500 mg tablet,extended 1,000 mg PO BID 90 Days #360 tab 05/20/21 release 24 hr pen needle, diabetic 32 gauge x #450 ea 05/20/21 gabapentin 100 mg capsule 100 mg PO BEDTIME #30 cap 10/25/21 Allergies Allergy/AdvReac Type Severity Reaction Status Date / Time No Known Allergies Allergy Verified 10/18/21 10:29 [No Known Allergies*] Review of Systems Review of Systems: Yes unobtainable due to endotracheal tube PMFSH Past Medical History Source: nursing notes reviewed Medical History Afib Diabetic nephropathy associated with type 1 diabetes mellitus Diabetic polyneuropathy associated with type 1 diabetes mellitus Dyslipidemia Elevated liver enzymes GERD (gastroesophageal reflux disease) Hypertension 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), managed as type 1 Osteoarthritis Osteopenia Recurrent UTI Surgical History History of back surgery History of lumpectomy of left breast Hx of cardiac catheterization (08/31/20) Hx of cholecystectomy Hx of colonoscopy (~2009) Hx of tubal ligation Family History Family History Father Family history unknown Mother Family history unknown Social History Social History Alcohol intake: current Alcohol intake frequency: does not drink Advance Directives: No Advance Directives Information Provided: No Physical Exam Vital Signs: Vital Signs: Last Vital Signs Temp 0 F L 10/27/21 02:42 Pulse 70 10/27/21 02:42 Resp 40 H 10/27/21 02:42 BP 000/00 L 10/27/21 02:42 BMI result Body Mass Index 23.8 ACLS in progress Easy ventilation with Ambu bag and capnography noted to register in the 70s Please see code sheet for details on resuscitation There are no concerning findings on the body. Course Course Course Narrative: ACLS was performed and ROSC was achieved. Owen tube was switched over to a 7-0 endotracheal tube with and patient was noted to be hypotensive and a Levophed drip was initially started and then was switched to an epi drip. Patient was noted to be anemic and is historically on Coumadin with an INR of 2.1, patient will receive 2 units FFP. In addition, BNP was noted to be elevated and chest x-ray shows some fluid overload and patient additionally received 40 mg of Lasix IV push and a Dutta catheter is in place. ETT had to be adjusted and was pulled back to 23 cm at the lips. 0430: I discussed the case with [facility] ICU who accepts transfer. 0500: Patient is critically stable for transfer to [facility] ICU, family was made aware that patient could potentially arrest EN route. Both epi drip and FFP are hanging and will be administered EN route. Reevaluation(s) Reevaluation #1: Levophed started Time: 02:45 Reevaluation #2: Epi drip ordered Time: 02:58 Reevaluation #3: I discussed with the family regarding advanced directives, specifically I spoke with Florencia who is the patient's healthcare proxy and her sister Kinza who is present at this time. At this time they wish to discuss that further with other family members, this was discussed with Dr. Lopez who accepts admission. Time: 03:27 Additional Reevaluation(s): 0345: On review of lab work patient's INR is noted to be 2.1 which is therapeutic, however her hemoglobin is noted to be 7.7 and she did have sanguinous frothy secretions on intubation and will have her INR reversed at this time. 0440: I discussed with the family (HCP-Florencia) transfer to [facility] who has accepted the patient directly to the ICU under Dr. Drew. They affirm that they wish their family member to be transferred to [facility]. MDM - Cardiac Arrest/CPR Lab Data Result diagrams: 10/27/21 02:40 10/27/21 02:40 Labs: Lab Results 10/27/21 10/27/21 10/27/21 Range/Units 02:40 02:40 02:40 WBC 11.6 H (4.8-10.8) X10*3/uL RBC 3.25 L (4.20-5.50) X10*6/uL Hgb 7.7 L (12.0-16.0) g/dl Hct 27.2 L (37.0-47.0) % MCV 83.7 (80.0-98.0) fL MCH 23.7 L (27.0-33.0) pg MCHC 28.3 L (31.0-35.0) g/dl RDW 17.1 H (11.0-16.0) % Plt Count 95 L (160-400) X10*3/uL MPV 12.4 H (9.4-12.3) fL Immature Gran % (Auto) 1.7 H (0.0-0.4) % Neut % (Auto) 23.9 L (45-73) % Lymph % (Auto) 68.8 H (20-40) % Stearns % (Auto) 4.6 (2-11) % Eos % (Auto) 0.8 (0-4) % Baso % (Auto) 0.2 (0-2) % Lymph # (Auto) 8.0 H (1.2-4.9) X10*3/uL Stearns # (Auto) 0.5 (0.1-1.2) X10*3/uL Eos # (Auto) 0.1 (0.0-0.4) X10*3/uL Baso # (Auto) 0.0 (0.0-0.2) X10*3/uL Abs Immat Gran (auto) 0.20 H (0.00-0.03) X10*3/uL Absolute Neuts (auto) 2.8 (2.0-8.3) x10*3/uL Absolute Nucleated RBC 0.130 H (0.0-0.012) X10*3/uL Nucleated RBC % (auto) 1.1 H (0.0-0.2) /100WBC Smear Tech's Comments VERIFIED PT (9.9-13.0) SEC INR (0.9-1.1) APTT (24.1-38.0) SEC VBG pH (7.32-7.43) VBG pCO2 mmHg VBG pO2 mmHg VBG HCO3 (22-26) mmol/L VBG O2 Saturation % VBG Base Excess mmol/L Sodium 151 H (135-145) mmol/L Potassium 4.8 (3.3-5.1) mmol/L Chloride 107 (96-108) mmol/L Carbon Dioxide 19 L (22-29) mmol/L Anion Gap 30 H (12-20) BUN 17 H (9-16) mg/dL Creatinine 1.29 (0.5-1.4) mg/dL Estim Creat Clear Calc 28.6 Estimated GFR 39 Random Glucose 375 H* (60-115) mg/dL Calcium 7.9 L D (8.4-10.2) mg/dL Magnesium 2.0 (1.6-2.6) mg/dL Total Bilirubin 0.2 (0.0-1.0) mg/dL AST 136 H (5-31) U/L ALT 112 H (0-31) U/L Alkaline Phosphatase 63 (39-117) U/L Troponin I High Sens 304.0 H* (<3.5-17.0) ng/L B-Natriuretic Peptide 502 H (<100) pg/mL Total Protein 5.1 L D (6.5-8.0) g/dL Albumin 2.4 L D (3.5-5.0) g/dL Urine Color Urine Appearance Urine pH (5.0-8.0) Ur Specific [place] (1.005-1.025) Urine Protein (NEG-TRACE) MG/DL Urine Glucose (UA) (NEG) MG/DL Urine Ketones (NEG) MG/DL Urine Blood (NEG) Urine Nitrite (NEG) Ur Leukocyte Esterase (NEG) Urine RBC (0) /HPF Urine WBC (0-4) /HPF Ur Squamous Epith Cells /LPF Urine Bacteria /LPF Hyaline Casts /LPF Urine Mucus /LPF COVID-19 (DARLEEN) (Negative) COVID-19 Clin Com 10/27/21 10/27/21 10/27/21 Range/Units 02:40 02:44 03:04 WBC (4.8-10.8) X10*3/uL RBC (4.20-5.50) X10*6/uL Hgb (12.0-16.0) g/dl Hct (37.0-47.0) % MCV (80.0-98.0) fL MCH (27.0-33.0) pg MCHC (31.0-35.0) g/dl RDW (11.0-16.0) % Plt Count (160-400) X10*3/uL MPV (9.4-12.3) fL Immature Gran % (Auto) (0.0-0.4) % Neut % (Auto) (45-73) % Lymph % (Auto) (20-40) % Stearns % (Auto) (2-11) % Eos % (Auto) (0-4) % Baso % (Auto) (0-2) % Lymph # (Auto) (1.2-4.9) X10*3/uL Stearns # (Auto) (0.1-1.2) X10*3/uL Eos # (Auto) (0.0-0.4) X10*3/uL Baso # (Auto) (0.0-0.2) X10*3/uL Abs Immat Gran (auto) (0.00-0.03) X10*3/uL Absolute Neuts (auto) (2.0-8.3) x10*3/uL Absolute Nucleated RBC (0.0-0.012) X10*3/uL Nucleated RBC % (auto) (0.0-0.2) /100WBC Smear Tech's Comments PT 24.5 H (9.9-13.0) SEC INR 2.1 H (0.9-1.1) APTT 77.8 H* (24.1-38.0) SEC VBG pH 7.01 L* (7.32-7.43) VBG pCO2 70 mmHg VBG pO2 131 mmHg VBG HCO3 18 L (22-26) mmol/L VBG O2 Saturation 95.0 % VBG Base Excess -12.6 mmol/L Sodium (135-145) mmol/L Potassium (3.3-5.1) mmol/L Chloride (96-108) mmol/L Carbon Dioxide (22-29) mmol/L Anion Gap (12-20) BUN (9-16) mg/dL Creatinine (0.5-1.4) mg/dL Estim Creat Clear Calc Estimated GFR Random Glucose (60-115) mg/dL Calcium (8.4-10.2) mg/dL Magnesium (1.6-2.6) mg/dL Total Bilirubin (0.0-1.0) mg/dL AST (5-31) U/L ALT (0-31) U/L Alkaline Phosphatase (39-117) U/L Troponin I High Sens (<3.5-17.0) ng/L B-Natriuretic Peptide (<100) pg/mL Total Protein (6.5-8.0) g/dL Albumin (3.5-5.0) g/dL Urine Color YELLOW Urine Appearance CLEAR Urine pH 7.0 (5.0-8.0) Ur Specific [place] 1.015 (1.005-1.025) Urine Protein NEG (NEG-TRACE) MG/DL Urine Glucose (UA) NEG (NEG) MG/DL Urine Ketones NEG (NEG) MG/DL Urine Blood 1+ H (NEG) Urine Nitrite POS H (NEG) Ur Leukocyte Esterase NEG (NEG) Urine RBC 5-9 H (0) /HPF Urine WBC 0 (0-4) /HPF Ur Squamous Epith Cells 1+ /LPF Urine Bacteria TRACE /LPF Hyaline Casts 0-2 /LPF Urine Mucus 1+ /LPF COVID-19 (DARLEEN) (Negative) COVID-19 Clin Com 10/27/21 Range/Units 03:16 WBC (4.8-10.8) X10*3/uL RBC (4.20-5.50) X10*6/uL Hgb (12.0-16.0) g/dl Hct (37.0-47.0) % MCV (80.0-98.0) fL MCH (27.0-33.0) pg MCHC (31.0-35.0) g/dl RDW (11.0-16.0) % Plt Count (160-400) X10*3/uL MPV (9.4-12.3) fL Immature Gran % (Auto) (0.0-0.4) % Neut % (Auto) (45-73) % Lymph % (Auto) (20-40) % Stearns % (Auto) (2-11) % Eos % (Auto) (0-4) % Baso % (Auto) (0-2) % Lymph # (Auto) (1.2-4.9) X10*3/uL Stearns # (Auto) (0.1-1.2) X10*3/uL Eos # (Auto) (0.0-0.4) X10*3/uL Baso # (Auto) (0.0-0.2) X10*3/uL Abs Immat Gran (auto) (0.00-0.03) X10*3/uL Absolute Neuts (auto) (2.0-8.3) x10*3/uL Absolute Nucleated RBC (0.0-0.012) X10*3/uL Nucleated RBC % (auto) (0.0-0.2) /100WBC Smear Tech's Comments PT (9.9-13.0) SEC INR (0.9-1.1) APTT (24.1-38.0) SEC VBG pH (7.32-7.43) VBG pCO2 mmHg VBG pO2 mmHg VBG HCO3 (22-26) mmol/L VBG O2 Saturation % VBG Base Excess mmol/L Sodium (135-145) mmol/L Potassium (3.3-5.1) mmol/L Chloride (96-108) mmol/L Carbon Dioxide (22-29) mmol/L Anion Gap (12-20) BUN (9-16) mg/dL Creatinine (0.5-1.4) mg/dL Estim Creat Clear Calc Estimated GFR Random Glucose (60-115) mg/dL Calcium (8.4-10.2) mg/dL Magnesium (1.6-2.6) mg/dL Total Bilirubin (0.0-1.0) mg/dL AST (5-31) U/L ALT (0-31) U/L Alkaline Phosphatase (39-117) U/L Troponin I High Sens (<3.5-17.0) ng/L B-Natriuretic Peptide (<100) pg/mL Total Protein (6.5-8.0) g/dL Albumin (3.5-5.0) g/dL Urine Color Urine Appearance Urine pH (5.0-8.0) Ur Specific [place] (1.005-1.025) Urine Protein (NEG-TRACE) MG/DL Urine Glucose (UA) (NEG) MG/DL Urine Ketones (NEG) MG/DL Urine Blood (NEG) Urine Nitrite (NEG) Ur Leukocyte Esterase (NEG) Urine RBC (0) /HPF Urine WBC (0-4) /HPF Ur Squamous Epith Cells /LPF Urine Bacteria /LPF Hyaline Casts /LPF Urine Mucus /LPF COVID-19 (DARLEEN) Positive A (Negative) COVID-19 Clin Com See Note Procedures Intubation Time out performed: No sedative: Etomidate Mg Given: 10 paralytic: Rocuronium Mg Given: 100 Laryngoscope: fiber optic video scope ET Tube Size: 7 ET Tube Uncuffed: No Tube Secured Depth (cm): 25 Tube Secured Location: lips Tube Placement Confirmation: visualized tube passing through cords, equal breath sounds bilaterally, no breath sounds over epigastrium and confirmation by capnometry Patient Tolerated Procedure: well Intubation Complications: none Critical Care Time Critical Care Time Critical Care Time: Yes Total Critical Care Time: 60 Attestation: I personally attest to this time spent taking care of the patient. Discharge Plan Discharge Clinical Impression: Acute respiratory failure, Cardiac arrest, Lab test positive for detection of COVID-19 virus Patient Disposition: er [facility] Transfer Details: Patient required intensive care level care and [facility] has exceeded capacity. Prescriptions: No Action ezetimibe 10 mg tablet 10 mg PO QAM Qty: 90 RF: 1 nitrofurantoin macrocrystal 100 mg capsule 100 mg PO DAILY 90 Days Qty: 90 RF: 2 gabapentin 100 mg capsule 100 mg PO BEDTIME Qty: 30 RF: 6 calcium citrate-vitamin D3 315 mg-5 mcg (200 unit) tablet 1 tab PO RF: 0 omeprazole 20 mg capsule,delayed release(DR/EC) 0 mg PO RF: 0 levothyroxine 50 mcg tablet 50 mcg PO DAILY RF: 0 lisinopril 20 mg tablet 20 mg PO DAILY RF: 0 diclofenac sodium 75 mg tablet,delayed release (DR/EC) 75 mg PO BID RF: 0 metoprolol succinate 50 mg tablet extended release 24 hr 50 mg PO DAILY RF: 0 warfarin 5 mg tablet See Rx Instructions mg .ROUTE .COMPLEX Qty: 90 RF: 0 gabapentin 300 mg capsule 300 mg PO BID RF: 0 (DME) blood pressure test kit-large Kit See Rx Instructions ea .ROUTE DIRECTED Qty: 1 RF: 0 (DME) blood-glucose meter Kit See Rx Instructions ea .ROUTE .MEDSUPPLY Qty: 1 RF: 0 insulin aspart U-100 100 unit/mL (3 mL) insulin pen See Rx Instructions subcut .COMPLEX 90 Days Qty: 30 RF: 2 Toujeo SoloStar U-300 Insulin 300 unit/mL (1.5 mL) insulin pen 10 unit subcut BEDTIME 90 Days Qty: 4.5 RF: 2 metformin 500 mg tablet extended release 24 hr 1,000 mg PO BID 90 Days Qty: 360 RF: 1 (DME) pen needle, diabetic 32 gauge x 5/32 needle See Rx Instructions ea .ROUTE .MEDSUPPLY Qty: 450 RF: 2 (DME) lancets 33 gauge misc See Rx Instructions ea .ROUTE .MEDSUPPLY Qty: 350 RF: 2 (DME) blood sugar diagnostic Strip See Rx Instructions ea Not Applicable .MEDSUPPLY Qty: 350 RF: 3
[2021-10-27 02:50] LABS: Basophils Percent Auto 0.2 % (0-2); Eosinophils Absolute Auto 0.1 X10*3/uL (0.0-0.4); Eosinophils Percent Auto 0.8 % (0-4); Hematocrit 27.2 % (37.0-47.0); Hemoglobin 7.7 g/dl (12.0-16.0); Imm Gran Pct Auto 1.7 % (0.0-0.4); Lymphocytes Percent Auto 68.8 % (20-40); MANUAL DIFF FLAG SCAN; Mean Corpuscular HGB Conc 28.3 g/dl (31.0-35.0); Mean Corpuscular Hemoglobin 23.7 pg (27.0-33.0); Mean Corpuscular Volume 83.7 fL (80.0-98.0); Mean Platelet Volume 12.4 fL (9.4-12.3); Monocytes Absolute Auto 0.5 X10*3/uL (0.1-1.2); Monocytes Percent Auto 4.6 % (2-11); Neutrophils Absolute Auto 2.8 x10*3/uL (2.0-8.3); Neutrophils Percent Auto 23.9 % (45-73); Red Blood Count 3.25 X10*6/uL (4.20-5.50); Red Cell Distribution Width 17.1 % (11.0-16.0); SCAN SMEAR FLAG 1; White Blood Count 11.6 X10*3/uL (4.8-10.8)
[2021-10-27 02:51] LABS: NRBC Pct Auto 1.1 /100WBC (0.0-0.2); Platelet Count 95 X10*3/uL (160-400)
[2021-10-27 02:52] LABS: Venous Blood Gas Refer to POC result
[2021-10-27 02:54] LABS: VBG Base Excess -12.6 mmol/L; VBG HCO3 18 mmol/L (22-26); VBG pCO2 70 mmHg; VBG pH 7.01 (7.32-7.43); VBG pO2 131 mmHg
[2021-10-27 02:56] LABS: INTERNATIONAL NORM RATIO 2.1 (0.9-1.1); Prothrombin Time 24.5 SEC (9.9-13.0)
--- NOTE | 2021-10-27 03:00 | ECG_ITS ---
Test Reason : CODE Blood Pressure : / mmHG Vent. Rate : 039 BPM Atrial Rate : 150 BPM P-R Int : 000 ms QRS Dur : 140 ms QT Int : 544 ms P-R-T Axes : 000 -33 033 degrees QTc Int : 437 ms Junctional rhythm Marked bradycardia Right bundle branch block Left anterior fascicular block Marked lateral ST depressions and precoridal T wave inversions - consider ischemia Abnormal ECG When compared with ECG of 27-OCT-2021 02:36, Significant changes have occured. Referred By: Chinyere Zhang Electronically Signed By:Marck Sesay
[2021-10-27 03:03] LABS: Partial Thromboplastin Time 77.8 SEC (24.1-38.0)
[2021-10-27 03:09] LABS: SLIDE REVIEW VERIFIED
[2021-10-27 03:13] VITALS: BP 132/50; PULSE 44; TEMP 35; O2SAT 99
[2021-10-27 03:15] LABS: Appearance Urine CLEAR; Color Urine YELLOW; Glucose Urine UA NEG (NEG); Leukocyte Esterase Urine NEG (NEG); Nitrite Urine POS (NEG); Specific Gravity - Urine 1.015 (1.005-1.025); UACC Culture Trigger YES; Urine Blood 1+ (NEG); Urine Ketones NEG (NEG); Urine Protein NEG (NEG-TRACE)
[2021-10-27 03:25] LABS: Hyaline Casts Urine 0-2 /LPF; Mucus Urine 1+ /LPF; Squamous Epithelial Cell Urine 1+ /LPF
[2021-10-27 03:26] LABS: Bacteria Urine TRACE /LPF; WBC Urine 0 /HPF (0-4)
[2021-10-27 03:26] LABS: Alanine Aminotransferase 112 U/L (0-31); Albumin Level 2.4 g/dL (3.5-5.0); Alkaline Phosphatase 63 U/L (39-117); Anion Gap 30 (12-20); Aspartate Amino Transferase 136 U/L (5-31); B Type Natriuretic Peptide 502 pg/mL (<100); Bilirubin Total 0.2 mg/dL (0.0-1.0); Blood Urea Nitrogen 17 mg/dL (9-16); Calcium 7.9 mg/dL (8.4-10.2); Carbon Dioxide 19 mmol/L (22-29); Chloride 107 mmol/L (96-108); Creatinine Clr Calc Pharmacy 28.6; Estimated Glomerular Filt Rate 39; Glucose Random 375 mg/dL (60-115); Potassium 4.8 mmol/L (3.3-5.1); Sodium 151 mmol/L (135-145); Total Protein 5.1 g/dL (6.5-8.0)
[2021-10-27 03:28] LABS: COVID-19 Test Positive (Negative)
[2021-10-27] MEDS: Furosemide 40 MG/4 ML VIAL IVPUSH (03:54)
--- NOTE | 2021-10-27 05:04 | ECG_ITS ---
Test Reason : ABNORMAL EKG,CARDIAC ARREST Blood Pressure : / mmHG Vent. Rate : 043 BPM Atrial Rate : 108 BPM P-R Int : 000 ms QRS Dur : 124 ms QT Int : 526 ms P-R-T Axes : 070 027 018 degrees QTc Int : 444 ms Sinus tachycardia with A-V dissociation and Wide QRS rhythm Non-specific intra-ventricular conduction delay ST & T wave abnormality, consider anterior ischemia Abnormal ECG When compared with ECG of 27-OCT-2021 03:00, Sinus rhythm has replaced junctional rhythm Marked ST depressions improving Referred By: Chinyere Zhang Electronically Signed By:Marck Sesay
[2021-10-27 05:16] VITALS: BP 185/58; PULSE 44; RESP 18; TEMP 35.1
[2021-10-27 05:19] VITALS: BP 179/64; PULSE 45; RESP 18
--- NOTE | 2021-10-27 05:35 | PC.NURSE ---
Uri from chemistry called asking if second FFP unit should be put back in stock as pt's plan is for transfer. Pt actively being transferred to EMS stretcher. This RN tells uri to return ffp to stock
[2021-10-27 09:04] LABS: Glucose, Whole Blood 181 mg/dL (60-115)
== END 2021-10-27 06:00 | disposition short-term general hospital (02) ==
PROVIDERS: Emergency Provider Student in an Organized Health Care Education/Training Program; PCP Internal Medicine
DX: U07.1 COVID-19 (principal); J96.00 Acute respiratory failure, unspecified whether with hypoxia or hypercapnia; I46.9 Cardiac arrest, cause unspecified; J93.9 Pneumothorax, unspecified; R06.02 Shortness of breath; E10.9 Type 1 diabetes mellitus without complications; I10 Essential (primary) hypertension; E78.5 Hyperlipidemia, unspecified; K21.9 Gastro-esophageal reflux disease without esophagitis; I48.91 Unspecified atrial fibrillation; Z79.01 Long term (current) use of anticoagulants; Z79.4 Long term (current) use of insulin; Z79.899 Other long term (current) drug therapy; Z87.440 Personal history of urinary (tract) infections
CPT/HCPCS: 31500; 36415; 36430; 51702; 71045; 80053; 81001; 82803; 82947; 83735; 83880; 84484; 85025; 85610; 85730; 86850; 86900; 86901; 87086; 87635; 93005; 94002; 94003; 96365; 96375; 99284; 99291; J0171; J1940; P9017